=== PATIENT | male | born 1980 ===

== ENCOUNTER 2017-10-26 21:34 | Emergency (ER) | payer MEDICAID ==
[2017-10-26 21:34] VITALS: BMI 21.5
[2017-10-26 21:43] VITALS: BP 104/60; PULSE 85; RESP 16; TEMP 98.6; O2SAT 99
--- NOTE | 2017-10-26 22:34 | ED PDOC ---
HPI: General Adult Time Seen by Provider: 10/26/17 22:05 Chief Complaint (Nursing): Medical Clearance Chief Complaint (Provider): No complaints History Per: Patient History/Exam Limitations: no limitations Additional Complaint(s): 37 yo male with no medical problems presents with [place] [employer] for evaluation. PT states they wanted him to be see for evaluation of abrasions on the right lower leg from last night. Pt states they are slightly uncomfortable. No drainage. Pt without psychiatric history. Pt denies SI/HI. Calm and cooperative in ER. PMD: Dr. Powell - Last seen 6 months ago. Past Medical History Reviewed: Historical Data, Nursing Documentation, Vital Signs Vital Signs: Last Vital Signs Temp 98.6 F 10/26/17 21:41 Pulse 85 10/26/17 21:41 Resp 16 10/26/17 21:41 BP 104/60 10/26/17 21:41 Pulse Ox 99 10/26/17 21:41 - Medical History PMH: No Chronic Diseases Denies: Diabetes, Hepatitis, HIV, HTN, Seizures, Sexually Transmitted Disease - Surgical History Surgical History: No Surg Hx - Family History Family History: States: No Known Family Hx - Living Arrangements Living Arrangements: With Family - Social History Current smoker - smoking cessation education provided: No - Home Medications Home Medications: Ambulatory Orders Medication Instructions Recorded Unobtainable [Unobtainable] 10/21/14 Clindamycin [Cleocin] 300 mg PO BID #14 cap 11/10/16 Mupirocin 2% Cream [Bactroban 30 applic TOP BID #1 tube 11/10/16 Cream] - Allergies Allergies/Adverse Reactions: Allergies Allergy/AdvReac Type Severity Reaction Status Date / Time No Known Allergies Allergy Verified 10/26/17 21:40 Review of Systems ROS Statement: Except As Marked, All Systems Reviewed And Found Negative Constitutional: Negative for: Fever, Chills Cardiovascular: Negative for: Chest Pain Respiratory: Negative for: Cough, Shortness of Breath Gastrointestinal: Negative for: Nausea, Vomiting, Abdominal Pain Genitourinary Male: Negative for: Dysuria, Frequency Musculoskeletal: Negative for: Neck Pain, Shoulder Pain Skin: Positive for: Other Physical Exam - Reviewed Nursing Documentation Reviewed: Yes Vital Signs Reviewed: Yes - Physical Exam Appears: Positive for: Well, Non-toxic, No Acute Distress Head Exam: Positive for: ATRAUMATIC, NORMAL INSPECTION, NORMOCEPHALIC Skin: Positive for: Warm. Negative for: Normal Color (Abrasion, right anterior lower leg ) Eye Exam: Positive for: Normal appearance ENT: Positive for: Normal ENT Inspection Neck: Positive for: Normal Cardiovascular/Chest: Positive for: Regular Rate, Rhythm Respiratory: Positive for: Normal Breath Sounds. Negative for: Accessory Muscle Use, Respiratory Distress Back: Positive for: Normal Inspection Extremity: Positive for: Normal ROM Neurologic/Psych: Positive for: Alert - ECG O2 Sat by Pulse Oximetry: 99 Medical Decision Making Medical Decision Making: Pt drinking water in ER. Disposition - Clinical Impression Clinical Impression: Abrasion - Patient ED Disposition Is Patient to be Admitted: No - Disposition Disposition: Routine/Home Disposition Time: 22:39 Condition: STABLE Additional Instructions: Pt medically and psychiatrically cleared for incarceration.
== END 2017-10-26 23:28 ==
LOC: H.ER 21:34
DX: S80.811A Abrasion, right lower leg, initial encounter (principal)